=== PATIENT | female | born 1945 | race Caucasian/White ===

== ENCOUNTER → 2021-04-08 | Outpatient (CLI) | payer MEDICARE, BC ==
--- NOTE | 2021-04-08 14:51 | REP ---
INDICATION: R10.32,LEFT GROIN PAIN, M25.552, LEFT HIP PAIN. TECHNIQUE: AP and frog-lateral views FINDINGS: There is mild rather symmetric appearing hip joint space narrowing. There is no acute fracture, dislocation, or subluxation. There is no evidence of buttressing. IMPRESSION: Mild degenerative changes. <Electronically signed by Shola Grossman > 04/08/21 [id number]
== END ==
LOC: M CLY 13:38
PROVIDERS: ATTEND Physician Assistant
DX: R10.32 Left lower quadrant pain (principal); M16.12 Unilateral primary osteoarthritis, left hip
CPT/HCPCS: 73502; G0463

== ENCOUNTER → 2022-05-06 | Outpatient (CLI) | payer MEDICARE, BC, OTHER | LOC: M SOG 08:12 | PROVIDERS: ATTEND Orthopaedic Surgery Hand Surgery | DX: M25.511 Pain in right shoulder (principal) ==